=== PATIENT | female | born 1980 | race African-American/Black ===

== ENCOUNTER → 2018-02-26 | Outpatient (CLI) | payer MEDICARE, MEDICAID ==
[~2018-02-26] MED LIST: LIDOCAINE HCL 1% 20ML VIAL (Pyxis) INJ ONE
[2018-02-26 14:38] LABS: GLUCOSE CSF 52 mg/dL (41-75)
== END | disposition home or self-care (01) ==
LOC: RAD 09:02
PROVIDERS: ATTEND Psychiatry & Neurology Neurology
DX: G35 Multiple sclerosis (principal); Z88.0 Allergy status to penicillin; Z72.0 Tobacco use; Z79.899 Other long term (current) drug therapy
CPT/HCPCS: 62270; 77003; 82040; 82042; 82784; 82945; 83873; 83916; 84157; 89050; J3490

== ENCOUNTER 2018-12-31 21:04 | Emergency (ER) | payer MEDICARE, MEDICAID ==
[~2018-12-31] VITALS: Ht 167.6 cm; Wt 75.0 kg
[2018-12-31] MEDS ORDERED: ONDANSETRON HCL 4MG TABLET PO ONE (22:00)
[2018-12-31] MEDS ORDERED: TRAMADOL 50MG TABLET PO ONE (22:00)
[2018-12-31] MEDS ORDERED: KETOROLAC 60MG/2ML VIAL IM ONE (23:00)
[2019-01-01 00:05] VITALS: BP 107/62
== END 2019-01-01 04:45 | disposition home or self-care (01) ==
LOC: ER 21:04
DX: M79.18 Myalgia, other site (principal)
CPT/HCPCS: 81025; 96372; 99283; J1885; Q0162